=== PATIENT | female | born 1985 | race Caucasian/White ===

== ENCOUNTER 2022-05-15 15:50 | Emergency (ER) | payer OTHER ==
[~2022-05-15] VITALS: Ht 162.6 cm; Wt 72.6 kg
[2022-05-15] MEDS ORDERED: IBUP800 PO (17:21)
== END 2022-05-15 18:04 | disposition home or self-care (01) ==
LOC: ER 15:50
DX: S60.221A Contusion of right hand, initial encounter (principal); W01.0XXA Fall on same level from slipping, tripping and stumbling without subsequent striking against object, initial encounter
CPT/HCPCS: 73130; A9270